=== PATIENT | male | born 2000 | race Hispanic/Latino ===

== ENCOUNTER 2023-02-04 20:11 | Emergency (ER) | payer MEDICAID | END 2023-02-04 21:46 | disposition left against medical advice (07) | LOC: EDH 20:11 | DX: S99.929A Unspecified injury of unspecified foot, initial encounter (principal); Z53.21 Procedure and treatment not carried out due to patient leaving prior to being seen by health care provider; X58.XXXA Exposure to other specified factors, initial encounter; Y93.89 Activity, other specified; Y92.89 Other specified places as the place of occurrence of the external cause; Y99.8 Other external cause status ==

== ENCOUNTER 2023-12-16 19:50 | Emergency (ER) | payer MEDICAID, OTHER ==
[~2023-12-16] VITALS: Ht 172.7 cm; Wt 113.4 kg
[2023-12-16 22:13] VITALS: BP 155/82; O2SAT 99
[2023-12-17] MEDS ORDERED: MONT-46 PO (00:15)
[2023-12-17] MEDS ORDERED: ALBUHFA IH (00:15)
[2023-12-17 00:16] VITALS: PULSE 69; RESP 14
[2023-12-17] MEDS: IPRATROPIUM/ALBUTEROL SULFATE 3 ML SOLUTION IH ONE (00:16)
== END 2023-12-17 00:34 | disposition home or self-care (01) ==
LOC: EDH 19:50
DX: J45.909 Unspecified asthma, uncomplicated (principal); Z98.890 Other specified postprocedural states
CPT/HCPCS: 71045; 94640

== ENCOUNTER 2024-09-22 20:45 | Emergency (ER) | payer BC ==
[~2024-09-22] VITALS: Ht 172.7 cm; Wt 111.1 kg
[~2024-09-22 20:45] MED LIST: ALBUHFA IH; MONT-46 PO
[2024-09-22 20:46] VITALS: TEMP 98
[2024-09-22 20:58] LABS: APPEARANCE,URINE CLEAR (CLEAR); BILIRUBIN,URINE NEGATIVE (NEGATIVE); COLOR,URINE LIGHT-YELLOW (YELLOW); GLUCOSE, URINE (UA) NEGATIVE (NEGATIVE); KETONES,URINE NEGATIVE (NEGATIVE); LEUKOCYTE ESTERASE ,URINE 500 Leu/uL (NEGATIVE); NITRATE,URINE NEGATIVE (NEGATIVE); OCCULT BLOOD,URINE NEGATIVE (NEGATIVE); PH,URINE 5.5 (5.0-8.0); PROTEIN,URINE 10 mg/dL (NEGATIVE); UROBILINOGEN,URINE 0.2 mg/dL (0.2-1.0)
[2024-09-22 20:59] LABS: ADD UA MICROSCOPIC YES
[2024-09-22 21:02] LABS: BACTERIA,URINE FEW /HPF (None Seen); MUCUS,URINE RARE LPF (None Seen); SQUAMOUS EPITHELIAL CELL,UR RARE /HPF (0-2); WBC CLUMP RARE /HPF (0-1); WBC,URINE 26-50 /HPF (0-1); YEAST,URINE BUDDING RARE /HPF (None Seen)
[2024-09-22 21:30] LABS: BASOPHILS # (AUTO) 0.09 K/uL (0.00-0.20); BASOPHILS % (AUTO) 0.8 % (0.0-5.0); EOSINOPHILS # (AUTO) 1.05 K/uL (0.00-0.70); HEMATOCRIT 44.2 % (42-54); IMMATURE GRANULOCYTE ABSOLUTE 0.06 K/uL (0-1); LYMPHOCYTES # (AUTO) 2.9 K/uL (1.0-4.8); LYMPHOCYTES % (AUTO) 24.9 % (21.0-51.0); MEAN CORPUSCULAR HEMOGLOBIN 29.8 pg (27.0-33.0); MEAN CORPUSCULAR HGB CONC 33.7 g/dL (32.0-36.0); MEAN CORPUSCULAR VOLUME 88.4 fL (79-99); MONOCYTES # (AUTO) 0.9 K/uL (0.1-1.0); MONOCYTES % (AUTO) 7.6 % (3.0-13.0); NEUTROPHILS # (AUTO) 6.7 K/uL (1.8-7.7); NEUTROPHILS % (AUTO) 57.2 % (40.0-77.0); PLATELET COUNT (AUTO) 348 K/uL (130-400); RED CELL DISTRIBUTION WIDTH 12.2 % (11.0-15.5); WHITE BLOOD COUNT (AUTO) 11.7 K/uL (4.8-10.8)
[2024-09-22] MEDS ORDERED: cefTRIAXone 1G VIAL IVPB ONE (21:30)
[2024-09-22 21:38] LABS: CREATININE 1.1 mg/dL (0.5-1.3)
--- NOTE | 2024-09-22 21:48 | HMCIMG ---
CT ABDOMEN/PELVIS W/O CONTRAST CLINICAL HISTORY: KIDNEY STONES COMPARISON: None TECHNIQUE: Sequential axial images of abdomen and pelvis without contrast and with sagittal and coronal reconstructions. CT was performed with one or more of the following dose reduction techniques: automated exposure control, adjustment of the mA and/or kV according to patient size, or use of iterative reconstruction technique FINDINGS: Lung bases clear. Liver and spleen are unremarkable. The gallbladder pancreas and adrenal glands and kidneys and bladder are unremarkable. There is no identified hydronephrosis or nephrolithiasis. There is no identified bowel obstruction. There is moderate amount of contrast material in the colon. There are scattered sigmoid colon diverticuli with no acute inflammatory changes. The appendix is normal. There is no identified bulky abdominal or retroperitoneal lymphadenopathy. There is no free air or free fluid. The prostate gland is unremarkable. The bony structures are within normal limits. IMPRESSION: There is no hydronephrosis or nephrolithiasis. Sigmoid diverticulosis. Constipation
[2024-09-22] MEDS ORDERED: LACT-441 PO (22:36)
[2024-09-22] MEDS ORDERED: CIPR-278 PO (22:36)
--- NOTE | 2024-09-22 22:37 | ERN ---
ED Note History of Present Illness Stated Complaint: C/O LOWER BACK PAIN X 1 WK Chief Complaint: Back Pain-No Injury Time Seen by MD: 21:00 Time Seen by Midlevel: 21:00 Dictation: The patient is a 23-year-old male with a history of asthma who presents to the emergency department with complaints of a right and left side flank pain onset one week ago. Patient reports that just prior to the pain he started experiencing some burning urination. Denies any fevers but reports occasional chills. Denies any back trauma, urinary or fecal incontinence. Denies hematuria. Allergies: Coded Allergies: No Known Allergies (Unverified Allergy, Unknown, 12/16/23) Home Meds Active Scripts Lactulose (Lactulose) 10 Gram/15 Ml Solution, 30 ML PO DAILY for constipation, #900 ML 0 Refills Prov:ALEX MARTINEZ [facility] 09/22/24 Ciprofloxacin HCl (Cipro) 500 Mg Tablet, 1 TAB PO BID for 10 Days, #20 TAB 0 Refills Prov:ALEX MARTINEZ [facility] 09/22/24 Albuterol Sulfate (Ventolin Hfa/Proventil Hfa/Proair Hfa) 90 Mcg Puff, 90 MCG IH QID PRN for WHEEZING, #2 INHALER 2 Refills Prov:SALLY LOPES MD 12/17/23 Montelukast Sodium (Singulair 10Mg) 10 Mg Tab, 10 MG PO DAILY, #30 TAB Prov:SALLY LOPES MD 12/17/23 Past Medical History Past Medical History: No Pertinent History Surgical History: None Surgical History Other: LEFT HAND Family History: Negative Social History: Negative, Lives with family RN Note Reviewed/Agreed w/PFSH: Yes Review of System Dictation Constitutional: Negative for fever and weight loss positive for chills Eyes: Negative for injury, pain,redness, and discharge ENT: Negative for injury,pain or swelling Cardiovascular: Negative for chest pain, palpitations, and edema Respiratory: Negative for shortness of breath, cough, and wheezing, Abdomen/GI: Negative for abdominal pain, nausea, vomiting, diarrhea, and constipation Back: Negative for injury and pain positive for bilateral flank pain : Negative for injury, bleeding and discharge positive for burning urination MS/Extremity: Negative for injury and deformity Skin: Negative for rash, and discoloration Neuro: Negative for headache, weakness, numbness, tingling, and seizure Psych: Negative for suicide ideation, homicidal ideation, and hallucinations Initial Vital Sign VS Vital Signs Date Time Temp Pulse Resp B/P (MAP) Pulse Ox O2 Delivery O2 Flow Rate FiO2 09/22/24 20:46 98.1 62 20 143/95 99 Room Air Physical Exam Dictation Vital Signs reviewed General Appearance: Alert, oriented x 3, no acute distress, well developed, nourished. Head and Face: non-traumatic. Eyes: PERRL, pink conjunctivas, eyelid no trauma, anterior chamber with arcus senilis. Ears: Pinnas intact and no signs of trauma or erythema ear canals clear and no discharge TM no erythema Nose: No discharge, no bleeding. Oropharynx: Mouth normal, tongue pink. pharynx clear,no erythema, tonsils no exudates, no abscesses noted, mucous membrane moist Neck: Supple, non-tender, no thyromegaly, no masses, no JVD, no bruits Breast:Deferred Chest:No tenderness, no crepitus, no paradoxical movement, no retractions Lungs:Clear, well-ventilated, symmetric, no rales, no wheezing, no rhonchi, no stridor, good breath sounds bilaterally Heart: Regular rate, regular rhythm, no murmur, no gallops Vascular: no peripheral edema, Abdomen: Soft, positive bowel sounds, nondistended, no guarding, nontender, no rebound, no masses no hepatomegaly, no splenomegaly, no Greene's sign, no hernias. Rectal: Deferred Genital: Deferred Neurological: Normal speech, motor function intact, sensory function intact Musculoskeletal: Neck nontender, full range of motion, back nontender, full range of motion, no CVA tenderness Extremities: nontender, full range of motion Skin: Color pink, dry, no turgor, no rash, no lacerations, no abrasions, no contusions. Lymphatic: Deferred Results (Laboratory/Radiology) Laboratory/Radiology Laboratory Tests Test 09/22/24 20:51 09/22/24 21:22 Urine Color LIGHT-YELLOW (YELLOW) Urine Appearance CLEAR (CLEAR) Urine pH 5.5 (5.0-8.0) Urine Specific [place] 1.019 (1.001-1.031) Urine Protein 10 mg/dL (NEGATIVE) H Urine Glucose (UA) NEGATIVE mg/dL (NEGATIVE) Urine Ketones NEGATIVE mg/dL (NEGATIVE) Urine Occult Blood NEGATIVE (NEGATIVE) Urine Nitrate NEGATIVE (NEGATIVE) Urine Bilirubin NEGATIVE mg/dL (NEGATIVE) Urine Urobilinogen 0.2 mg/dL (0.2-1.0) Urine Leukocyte Esterase 500 Saul/uL (NEGATIVE) H Urine RBC 2-5 /HPF (0-1) H Urine WBC 26-50 /HPF (0-1) H Urine WBC Clumps (Auto) RARE /HPF (0-1) Urine Squamous Epithelial Cells RARE /HPF (0-2) Urine Bacteria FEW /HPF (None Seen) Urine Yeast RARE /HPF (None Seen) White Blood Count 11.7 K/uL (4.8-10.8) H Red Blood Count 5.00 MIL/uL (4.50-6.20) Hemoglobin 14.9 g/dL (14.0-18.0) Hematocrit 44.2 % (42-54) Mean Corpuscular Volume 88.4 fL (79-99) Mean Corpuscular Hemoglobin 29.8 pg (27.0-33.0) Mean Corpuscular Hemoglobin Concent 33.7 g/dL (32.0-36.0) Red Cell Distribution Width 12.2 % (11.0-15.5) Platelet Count 348 K/uL (130-400) Mean Platelet Volume 10.0 fL (7.5-10.5) Immature Granulocyte % (Auto) 0.5 % (0-1) Neutrophils (%) (Auto) 57.2 % (40.0-77.0) Lymphocytes (%) (Auto) 24.9 % (21.0-51.0) Monocytes (%) (Auto) 7.6 % (3.0-13.0) Eosinophils (%) (Auto) 9.0 % (0.0-8.0) H Basophils (%) (Auto) 0.8 % (0.0-5.0) Neutrophils # (Auto) 6.7 K/uL (1.8-7.7) Lymphocytes # (Auto) 2.9 K/uL (1.0-4.8) Monocytes # (Auto) 0.9 K/uL (0.1-1.0) Eosinophils # (Auto) 1.05 K/uL (0.00-0.70) H Basophils # (Auto) 0.09 K/uL (0.00-0.20) Absolute Immature Granulocyte (auto 0.06 K/uL (0-1) Nucleated Red Blood Cells 0.0 % (0.0-0.19) Sodium Level 133 mmol/L (136-145) L Potassium Level 4.0 mmol/L (3.5-5.1) Chloride Level 96 mmol/L (101-111) L Carbon Dioxide Level 33 mmol/L (21-32) H Blood Urea Nitrogen 18 mg/dL (7-18) Creatinine 1.1 mg/dL (0.5-1.3) Glomerular Filtration Rate Calc 97 mL/min (>90) Random Glucose 78 mg/dL (70-105) Total Calcium 8.9 mg/dL (8.5-10.1) REASON: R/O KIDNEY STONES ORDERING PHYSICIAN: ALEX MARTINEZ PROCEDURE: ABD PEL WO - CT ABDOMEN/PELVIS W/O CONTRAST CT ABDOMEN/PELVIS W/O CONTRAST CLINICAL HISTORY: KIDNEY STONES COMPARISON: None TECHNIQUE: Sequential axial images of abdomen and pelvis without contrast and with sagittal and coronal reconstructions. CT was performed with one or more of the following dose reduction techniques: automated exposure control, adjustment of the mA and/or kV according to patient size, or use of iterative reconstruction technique FINDINGS: Lung bases clear. Liver and spleen are unremarkable. The gallbladder pancreas and adrenal glands and kidneys and bladder are unremarkable. There is no identified hydronephrosis or nephrolithiasis. There is no identified bowel obstruction. There is moderate amount of contrast material in the colon. There are scattered sigmoid colon diverticuli with no acute inflammatory changes. The appendix is normal. There is no identified bulky abdominal or retroperitoneal lymphadenopathy. There is no free air or free fluid. The prostate gland is unremarkable. The bony structures are within normal limits. IMPRESSION: There is no hydronephrosis or nephrolithiasis. Sigmoid diverticulosis. Constipation Labs Reviewed?: Yes ED Course ED Course Orders Procedure Category Date Status Time Urinalysis Profile LAB 09/22/24 Complete 20:49 Culture Urine FELIX 09/22/24 In Process 21:00 Cbc With Differential LAB 09/22/24 Complete 21:05 Ct Abdomen/Pelvis W/O CT 09/22/24 Resulted Contrast 21:05 0.9%Nacl 1000ml (Ns PHA 09/22/24 Complete 1000ml) 21:30 Ketorolac PHA 09/22/24 Complete Tromethamine 30mg/Ml 21:30 Basic Metabolic Panel LAB 09/22/24 Complete 21:05 Ceftriaxone 1g Vial PHA 09/22/24 Complete (Rocephine 1g Inj) 21:30 Ceftriaxone 2gm Vial PHA 09/22/24 Complete (Rocephin 2gm Inj) 21:30 Current Medications Medications (Trade) Dose Ordered Sig/Cristina Route PRN Reason Start Time Stop Time Status Last Admin Dose Admin Ceftriaxone Sodium (ROCEphine 1G INJ) 1 gm ONCE ONCE IVPB 09/22/24 21:30 09/22/24 21:23 DC Ceftriaxone Sodium (Rocephin 2gm Inj) 2 gm ONCE ONCE IVPB 09/22/24 21:30 09/22/24 21:31 DC Ketorolac Tromethamine (toRADol) 30 mg ONCE ONCE IVP 09/22/24 21:30 09/22/24 21:31 DC Sodium Chloride 1,000 ml @ 0 mls/hr ONCE ONCE IV 09/22/24 21:30 09/22/24 21:31 DC Vital Signs Date Time Temp Pulse Resp B/P (MAP) Pulse Ox O2 Delivery O2 Flow Rate FiO2 09/22/24 20:46 98.1 62 20 143/95 99 Room Air Medical Decision Making MDM The patient is a 23-year-old male with a history of asthma who presents to the emergency department with complaints of a right and left side flank pain onset one week ago. Patient reports that just prior to the pain he started experiencing some burning urination. Denies any fevers but reports occasional chills. Denies any back trauma, urinary or fecal incontinence. Denies hematuria. CBC showed mild leukocytosis, no anemia, chemistry showed mild hyponatremia, normal renal function. Urinalysis with positive leukocyte esterase. CT abdomen and pelvis showed no renal stones, constipation Differential diagnosis: UTI, pyelonephritis, sepsis, electrolyte imbalance, kidney stones Need for hospitalization: Patient does not meet criteria for hospitalization. There are no social concerns with this patient. DX & DISP Disposition: Discharge Departure Impression: Primary Impression: UTI (urinary tract infection) Additional Impressions: Constipation, Flank pain Condition: Stable Scripts Lactulose (Lactulose) 10 Gram/15 Ml Solution 30 ML PO DAILY for constipation, #900 ML 0 Refills Prov: ALEX MARTINEZ [employer] 09/22/24 Ciprofloxacin HCl (Cipro) 500 Mg Tablet 1 TAB PO BID for 10 Days, #20 TAB 0 Refills Prov: ALEX MARTINEZ 09/22/24 Referrals: SELF,REFERRAL (PCP) Time of Disposition: 22:40 I have reviewed the case, and I agree with, Diagnosis and Plan ALEX MARTINEZ Sep 22, 2024 22:37
[2024-09-22] MEDS: ketOROlac 30MG VIAL (30MG/ML) IVP ONE (23:59)
[2024-09-22] MEDS: 0.9%NACL 1000ML 1,000 ML IV ONE (23:59)
[2024-09-22] MEDS: CEFTRIAXONE 2GM VIAL IVPB ONE (23:59)
[2024-09-22] MEDS: LACTULOSE 20 GM/30 ML UDCUP PO ONE (23:59)
[2024-09-23 00:09] VITALS: BP 118/78; PULSE 59; RESP 18; O2SAT 98
== END 2024-09-23 00:52 | disposition home or self-care (01) ==
LOC: EDH 20:45
DX: N39.0 Urinary tract infection, site not specified (principal); K59.00 Constipation, unspecified; K57.30 Diverticulosis of large intestine without perforation or abscess without bleeding; Z79.899 Other long term (current) drug therapy
CPT/HCPCS: 99284; 74176; 96374; 96375; 80048; 85025; 87086 ×2; 87186; 81001; 36415; J7030; J0696; J1885